=== PATIENT | male | born 2000 | race Two or more races ===

== ENCOUNTER 2021-07-21 17:15 | Emergency (ER) | payer SELFPAY ==
[2021-07-21 18:09] VITALS: BP 139/62; PULSE 85; RESP 16; TEMP 36.8; O2SAT 99
--- NOTE | 2021-07-21 18:19 | PC.NURSE ---
1800-- called name to bring pt back from waiting room and they said that he went outside, so waiting to see if he comes back inside.
== END 2021-07-21 18:30 | disposition left against medical advice (07) ==
PROVIDERS: Emergency Provider Internal Medicine Hematology & Oncology
DX: Z53.21 Procedure and treatment not carried out due to patient leaving prior to being seen by health care provider (principal)
CPT/HCPCS: 99199